=== PATIENT | male | born 1960 | race American Indian/Alaskan Native ===

== ENCOUNTER 2020-07-17 09:56 | Outpatient (CLI) | payer OTHER ==
--- NOTE | 2020-07-17 11:52 | XRay Report ---
Knee bilateral 9 views INDICATION: Knee pain IMPRESSION: No significant knee effusion. Minimal degenerative changes. No fracture or subluxation. Signer Name: Bernard Cristina MD Signed: 07/17/2020 11:48 AM Workstation Name: [id number]
--- NOTE | 2020-07-17 11:53 | XRay Report ---
CHEST 2 VIEWS INDICATION / CLINICAL INFORMATION: COUGH. FINDINGS: SUPPORT DEVICES: None. HEART / MEDIASTINUM: No significant abnormality. LUNGS / PLEURA: No significant pulmonary or pleural abnormality. No pneumothorax. ADDITIONAL FINDINGS: No significant additional findings. Scoliosis of the thoracic spine. IMPRESSION: 1. No acute findings. Signer Name: Bernard Cristina MD Signed: 07/17/2020 11:48 AM Workstation Name: [id number]
== END 2020-07-17 09:57 | disposition home or self-care (01) ==
LOC: XRAY 09:56
PROVIDERS: ATTEND Internal Medicine Hematology & Oncology
DX: M17.0 Bilateral primary osteoarthritis of knee (principal); R05 Cough
CPT/HCPCS: 71046

== ENCOUNTER 2021-02-26 10:28 | Outpatient (CLI) | payer OTHER ==
--- NOTE | 2021-02-26 11:44 | XRay Report ---
CHEST 2 VIEWS INDICATION: Shortness of breath. COMPARISON: 07/17/2020 FINDINGS: Support devices: None. Heart: Within normal limits. Lungs/pleura: No acute air space or interstitial disease. No pneumothorax. Additional findings: Scoliosis is again noted. IMPRESSION: No acute findings. LEFT SHOULDER 3 VIEWS INDICATION: Left shoulder pain. COMPARISON: None. IMPRESSION: No acute osseous or soft tissue abnormality. 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 LEFT ELBOW 3 VIEWS INDICATION: LEFT ELBOW PAIN. COMPARISON: None. IMPRESSION: Normal bone mineralization. No acute osseous injury is identified. No significant DJD. C hronic healed fracture in the supracondylar region of the distal humerus is suspected. There is a mod erate olecranon spur measuring up to 7 mm. There is moderate to severe focal soft tissue swelling pos terior to the olecranon which probably represents olecranon bursitis. Signer Name: Cedrick Franco Jr, MD Signed: 02/26/2021 11:39 AM Workstation Name: [id number]
== END 2021-02-26 10:29 | disposition home or self-care (01) ==
LOC: XRAY 10:28
PROVIDERS: ATTEND Internal Medicine Hematology & Oncology
DX: S42.402D Unspecified fracture of lower end of left humerus, subsequent encounter for fracture with routine healing (principal); M47.814 Spondylosis without myelopathy or radiculopathy, thoracic region; M19.012 Primary osteoarthritis, left shoulder; M19.022 Primary osteoarthritis, left elbow; M79.89 Other specified soft tissue disorders; R06.02 Shortness of breath; X58.XXXD Exposure to other specified factors, subsequent encounter
CPT/HCPCS: 71046